=== PATIENT | female | born 1990 | race Caucasian/White ===

== ENCOUNTER 2021-08-30 13:16 | Inpatient (IN) | payer OTHER ==
[2021-08-30 13:56] VITALS: BMI 20.5
[2021-08-30] MEDS ORDERED: BENZOCAINE/MENTHOL (CHLORASEPTIC ) LOZENGE MM PRN (15:52)
[2021-08-30] MEDS ORDERED: DICYCLOMINE HCL 10 MG CAPSULE PO PRN (15:52)
[2021-08-30] MEDS ORDERED: ACETAMINOPHEN 325 MG TABLET (FP) PO PRN ×2 (15:52)
[2021-08-30] MEDS ORDERED: MAG HYDROX/AL HYDROX/SIMETH 30 ML UNIT-DOSE CUP PO PRN (15:52)
[2021-08-30] MEDS ORDERED: BISMUTH SUBSALICYLATE 524 MG/30 ML PO PRN (15:52)
[2021-08-30] MEDS ORDERED: MAGNESIUM CITRATE 300 ML BOTTLE PO PRN (15:52)
[2021-08-30] MEDS ORDERED: MAGNESIUM HYDROX 2400MG/30ML ORAL SUSPENSION 30 ML CUP PO PRN (15:52)
[2021-08-30] MEDS ORDERED: LOPERAMIDE HCL 2 MG CAPSULE PO PRN (15:52)
[2021-08-30] MEDS ORDERED: hydrOXYzine PAMOATE 25 MG CAPSULE (FP) PO SCH (18:00)
[2021-08-30] MEDS: PRENATAL VITAMINS W/ FOLIC ACID TABLET (FP) PO SCH (18:04)
[2021-08-30] MEDS: diazePAM 5 MG TABLET PO SCH ×2 (18:04→22:22)
[2021-08-30] MEDS: MELATONIN 5 MG TABLETS PO SCH (22:22)
[2021-08-30] MEDS: ONDANSETRON *ODT* 4 MG TABLET SL PRN (22:24)
[2021-08-30] MEDS: THIAMINE HCL 100 MG TABLET (FP) PO SCH (22:24)
[2021-08-31] MEDS: diazePAM 5 MG TABLET PO PRN ×3 (02:44→21:04)
[2021-08-31] MEDS: diazePAM 5 MG TABLET PO SCH ×4 (06:10→22:15)
[2021-08-31] MEDS: METHOCARBAMOL 500 MG TABLET PO PRN ×2 (06:14→14:00)
[2021-08-31] MEDS ORDERED: methaDONE HCL 10 MG TABLET PO SCH (09:45)
[2021-08-31] MEDS: PRENATAL VITAMINS W/ FOLIC ACID TABLET (FP) PO SCH (10:05)
[2021-08-31] MEDS: IBUPROFEN 600 MG TABLET (FP) PO PRN (10:09)
[2021-08-31] MEDS: ONDANSETRON *ODT* 4 MG TABLET SL PRN ×2 (10:11→22:17)
[2021-08-31] MEDS ORDERED: methaDONE HCL 10 MG TABLET ONE (10:40)
[2021-08-31] MEDS ORDERED: methaDONE HCL 40 MG DISPERSABLE TABLET ONE (10:40)
[2021-08-31 10:52] LABS: HEMATOCRIT 33.6 % (32.4-45.2); HEMOGLOBIN 10.9 GM/dL (10.7-15.3); MCH 29.2 pg (25.7-33.7); MCHC 32.3 g/dl (32.0-36.0); MEAN CELL VOLUME 90.4 fl (80-96); MEAN PLT VOLUME 7.8 fl (7.5-11.1); PLATELET COUNT 50 10^3/uL (134-434); RBC 3.71 M/mm3 (3.60-5.2); RDW 19.5 % (11.6-15.6); WHITE BLOOD COUNT 4.2 K/mm3 (4.0-10.0)
[2021-08-31 11:15] LABS: CALCIUM 8.7 mg/dL (8.5-10.1)
[2021-08-31 11:17] LABS: ALBUMIN 3.5 g/dl (3.4-5.0); BLOOD UREA NITROGEN 12.9 mg/dL (7-18)
[2021-08-31 11:20] LABS: CREATININE 0.5 mg/dL (0.55-1.3)
[2021-08-31 11:21] LABS: BILIRUBIN,TOTAL 0.7 mg/dL (0.2-1); TOT PROT 6.9 g/dl (6.4-8.2)
[2021-08-31] MEDS: NICOTINE 10 MG CARTRIDGE (INHALER) IH PRN (14:00)
[2021-08-31] MEDS: MELATONIN 5 MG TABLETS PO SCH (22:15)
[2021-08-31] MEDS: THIAMINE HCL 100 MG TABLET (FP) PO SCH (22:16)
[2021-09-01] MEDS ORDERED: methaDONE HCL 10 MG TABLET ONE (04:30)
[2021-09-01] MEDS ORDERED: methaDONE HCL 40 MG DISPERSABLE TABLET ONE (04:31)
[2021-09-01] MEDS: diazePAM 5 MG TABLET PO PRN ×3 (04:42→17:37)
[2021-09-01] MEDS: METHOCARBAMOL 500 MG TABLET PO PRN ×2 (06:28→22:13)
[2021-09-01] MEDS: diazePAM 5 MG TABLET PO SCH ×3 (06:28→22:11)
[2021-09-01] MEDS: ONDANSETRON *ODT* 4 MG TABLET SL PRN ×2 (06:29→22:14)
[2021-09-01] MEDS: PRENATAL VITAMINS W/ FOLIC ACID TABLET (FP) PO SCH (10:32)
[2021-09-01] MEDS: NICOTINE 10 MG CARTRIDGE (INHALER) IH PRN (14:07)
[2021-09-01] MEDS: MELATONIN 5 MG TABLETS PO SCH (22:11)
[2021-09-01] MEDS: THIAMINE HCL 100 MG TABLET (FP) PO SCH (22:11)
[2021-09-01] MEDS: IBUPROFEN 400 MG TABLET (FP) PO PRN (22:12)
[2021-09-02] MEDS: diazePAM 5 MG TABLET PO PRN ×3 (04:41→13:50)
[2021-09-02] MEDS ORDERED: methaDONE HCL 10 MG TABLET ONE (04:57)
[2021-09-02] MEDS ORDERED: methaDONE HCL 40 MG DISPERSABLE TABLET ONE (04:57)
[2021-09-02] MEDS: diazePAM 5 MG TABLET PO SCH ×2 (05:41→17:53)
[2021-09-02] MEDS: PRENATAL VITAMINS W/ FOLIC ACID TABLET (FP) PO SCH (09:40)
[2021-09-02] MEDS: ONDANSETRON *ODT* 4 MG TABLET SL PRN ×2 (09:41→17:56)
[2021-09-02] MEDS: NICOTINE 10 MG CARTRIDGE (INHALER) IH PRN ×4 (09:44→22:12)
[2021-09-02] MEDS: IBUPROFEN 600 MG TABLET (FP) PO PRN (09:47)
[2021-09-02] MEDS: METHOCARBAMOL 500 MG TABLET PO PRN ×2 (13:52→22:12)
[2021-09-02] MEDS: THIAMINE HCL 100 MG TABLET (FP) PO SCH (22:12)
[2021-09-02] MEDS: MELATONIN 5 MG TABLETS PO SCH (22:12)
[2021-09-02] MEDS: IBUPROFEN 400 MG TABLET (FP) PO PRN (22:14)
[2021-09-03] MEDS ORDERED: methaDONE HCL 40 MG DISPERSABLE TABLET ONE (04:01)
[2021-09-03] MEDS ORDERED: methaDONE HCL 10 MG TABLET ONE (04:01)
[2021-09-03] MEDS: METHOCARBAMOL 500 MG TABLET PO PRN (05:44)
[2021-09-03] MEDS ORDERED: diazePAM 5 MG TABLET PO ONE (06:00)
[2021-09-03] MEDS: ONDANSETRON *ODT* 4 MG TABLET SL PRN (06:13)
[2021-09-03] MEDS: IBUPROFEN 400 MG TABLET (FP) PO PRN (06:13)
[2021-09-03 09:06] VITALS: BP 102/64; PULSE 59; TEMP 96.9
[2021-09-03] MEDS: PRENATAL VITAMINS W/ FOLIC ACID TABLET (FP) PO SCH (10:56)
== END 2021-09-03 10:00 | disposition home or self-care (01) | DRG 773 ==
LOC: YASAS 13:16 → Y3N 17:30
PROVIDERS: ADMIT Allergy & Immunology; ATTEND Surgery
PROC: HZ2ZZZZ Detoxification Services for Substance Abuse Treatment (ICD-10-PCS; principal; 2021-08-30)
DX: F10.230 Alcohol dependence with withdrawal, uncomplicated (principal); F13.230 Sedative, hypnotic or anxiolytic dependence with withdrawal, uncomplicated; F11.20 Opioid dependence, uncomplicated; F17.210 Nicotine dependence, cigarettes, uncomplicated; F43.10 Post-traumatic stress disorder, unspecified; F41.0 Panic disorder [episodic paroxysmal anxiety]; F41.9 Anxiety disorder, unspecified; Z88.8 Allergy status to other drugs, medicaments and biological substances; Z91.013 Allergy to seafood
CPT/HCPCS: 36415; 80053; 81025; 85027; 86780; 93005; 93010; C9803-CS; Q0162; U0003; U0005